=== PATIENT | female | born 1990 | race Caucasian/White ===

== ENCOUNTER 2020-09-27 13:35 | Inpatient (IN) ==
[2020-09-27] MEDS ORDERED: Naloxone 0.4 MG/ML INJ IVP PRN (14:07)
[2020-09-27] MEDS ORDERED: *HR* Nalbuphine 10 MG/ML AMPUL IV PRN (14:07)
[2020-09-27] MEDS ORDERED: Lidocaine 1% 20 ML MDV INFILT PRN (14:07)
[2020-09-27] MEDS ORDERED: Azithromycin 500 MG in 0.9 % Sodium Chloride 250 ML IVPB ONE (14:07)
[2020-09-27] MEDS ORDERED: Metoclopramide 10 MG/2 ML VIAL IVP PRN (14:07)
[2020-09-27] MEDS ORDERED: Famotidine 20 MG/2 ML VIAL IVP PRN (14:07)
[2020-09-27] MEDS ORDERED: Ondansetron 4 MG/2 ML VIAL IVP PRN (14:07)
[2020-09-27] MEDS ORDERED: Ringers Solution, Lactated 1,000 ML IVC SCH (14:15)
[2020-09-27 14:54] LABS: Basophils % 0.3 %; Eosinophils # 0.1 K/mcL (0.0-0.6); Eosinophils % 0.9 %; Hematocrit 35.7 % (35.3-44.9); Hemoglobin 11.9 g/dL (11.5-15.4); Immature Granulocytes % 0.3 % (0-4); Lymphocytes # 1.9 K/mcL (0.6-4.6); Lymphocytes % 21.4 %; Mean Corpuscular HGB Conc 33.3 g/dL (31.6-35.5); Mean Corpuscular Hemoglobin 30.1 pg (28.0-33.3); Mean Corpuscular Volume 90.4 fL (83.0-100.0); Mean Platelet Volume 10.4 fL (9.4-12.4); Monocytes # 0.6 K/mcL (0.0-1.3); Monocytes % 6.2 %; Neutrophils # 6.4 K/mcL (1.6-8.9); Platelet Count 254 K/mcL (140-400); Red Blood Count 3.95 M/mcL (3.82-4.97); Red Cell Distribution Width 13.8 % (11.5-14.5); Segmented Neutrophils % 70.9 %
[2020-09-27] MEDS ORDERED: *HR* FentaNYL (PF) 100 MCG/2 ML VIAL EP ONE (15:34)
[2020-09-27] MEDS ORDERED: Ropivacaine/PF 0.2% 20 ML VIAL EP ONE (15:34)
[2020-09-27] MEDS ORDERED: EPHEDrine 50 MG/ML VIAL IVP PRN (15:34)
[2020-09-27] MEDS ORDERED: Epidural Premix (fent/bupiv) 110 ML EP SCH (15:45)
[2020-09-27 15:54] LABS: Amphetamine Screen,Urine Negative ng/mL (Cutoff=1000); Barbiturate Screen,Urine Negative ng/mL (Cutoff=200); Benzodiazepines Screen,Urine Negative ng/mL (Cutoff=200); Cannabinoid Screen,Urine Negative ng/mL (Cutoff = 50); Cocaine Screen,Urine Negative ng/mL (Cutoff= 300); Opiate Screen,Urine Negative ng/mL (Cutoff=300); Phencyclidine Screen,Urine Negative ng/mL (Cutoff=25)
[2020-09-27] MEDS ORDERED: Oxytocin 20 units/ LR 1000 mL 20 UNIT/1,000 ML BAG IVC SCH ×2 (18:30→23:13)
[2020-09-27] MEDS ORDERED: Lanolin 7 G OINT...G. TP PRN (23:13)
[2020-09-27] MEDS ORDERED: Benzocaine/Menthol 56 GM AEROSOL SPRAY TP PRN (23:13)
[2020-09-27] MEDS ORDERED: Acetaminophen 325 MG TABLET PO PRN (23:13)
[2020-09-27] MEDS ORDERED: Rho Immune Globulin 1,500 UNIT SYRINGE IM PRN (23:13)
[2020-09-27] MEDS ORDERED: Measles/Mumps/Rubella Vacc 0.5 ML VIAL SQ PRN (23:13)
[2020-09-27] MEDS ORDERED: *HR* HYDROcodone/Acet 5/325 mg TABLET PO PRN (23:13)
[2020-09-28] MEDS: Ibuprofen 600 MG TABLET PO PRN ×3 (01:05→13:53)
[2020-09-28] MEDS ORDERED: Prenatal Vit/FA 1 EACH TABLET PO SCH (09:00)
[2020-09-28 15:33] VITALS: BP 128/82
== END 2020-09-28 21:39 | disposition home or self-care (01) | DRG 807 ==
LOC: 1NENULAB 13:35 → 1NENUOBS 23:56
PROVIDERS: ADMIT Obstetrics & Gynecology; ATTEND Obstetrics & Gynecology

== ENCOUNTER 2021-11-30 08:09 | Inpatient (IN) ==
[2021-11-30] MEDS ORDERED: EPHEDrine 50 MG/ML VIAL IVP PRN (08:31)
[2021-11-30] MEDS ORDERED: Famotidine 20 MG/2 ML VIAL IVP PRN (08:33)
[2021-11-30] MEDS ORDERED: Naloxone 0.4 MG/ML INJ IVP PRN (08:33)
[2021-11-30] MEDS ORDERED: Metoclopramide 10 MG/2 ML VIAL IVP PRN (08:33)
[2021-11-30] MEDS ORDERED: Ondansetron 4 MG/2 ML VIAL IVP PRN (08:39)
[2021-11-30] MEDS ORDERED: Lidocaine 1% 20 ML MDV INFILT PRN (08:39)
[2021-11-30] MEDS ORDERED: Epidural Premix (fent/bupiv) 110 ML EP SCH (08:45)
[2021-11-30] MEDS ORDERED: Ringers Solution, Lactated 1,000 ML IVC SCH (08:45)
[2021-11-30] MEDS ORDERED: Oxytocin 30 UNIT/503 ML BAG IVC SCH ×2 (09:00→15:09)
[2021-11-30] MEDS ORDERED: Oxytocin 30 UNIT/503 ML BAG IVC ONE (09:03)
[2021-11-30 09:12] LABS: Basophils % 0.4 %; Eosinophils # 0.2 K/mcL (0.0-0.6); Eosinophils % 1.9 %; Hematocrit 36.4 % (35.3-44.9); Hemoglobin 12.3 g/dL (11.5-15.4); Immature Granulocytes % 0.4 % (0-4); Lymphocytes % 23.8 %; Mean Corpuscular HGB Conc 33.8 g/dL (31.6-35.5); Mean Corpuscular Hemoglobin 31.1 pg (28.0-33.3); Mean Corpuscular Volume 92.2 fL (83.0-100.0); Mean Platelet Volume 10.7 fL (9.4-12.4); Monocytes # 0.5 K/mcL (0.0-1.3); Monocytes % 5.7 %; Neutrophils # 5.7 K/mcL (1.6-8.9); Platelet Count 221 K/mcL (140-400); Red Blood Count 3.95 M/mcL (3.82-4.97); Red Cell Distribution Width 13.8 % (11.5-14.5); Segmented Neutrophils % 67.8 %; White Blood Count 8.4 K/mcL (4.3-11.1)
[2021-11-30 10:54] LABS: Amphetamine Screen,Urine Negative ng/mL (Cutoff=1000); Barbiturate Screen,Urine Negative ng/mL (Cutoff=200); Benzodiazepines Screen,Urine Negative ng/mL (Cutoff=200); Cannabinoid Screen,Urine Negative ng/mL (Cutoff = 50); Cocaine Screen,Urine Negative ng/mL (Cutoff= 300); Opiate Screen,Urine Negative ng/mL (Cutoff=300); Phencyclidine Screen,Urine Negative ng/mL (Cutoff=25)
[2021-11-30] MEDS ORDERED: *HR* OxyCODONE Immed Rel 5 MG TABLET PO PRN (15:09)
[2021-11-30] MEDS ORDERED: Lanolin 7 G OINT...G. TP PRN (15:09)
[2021-11-30] MEDS ORDERED: Benzocaine/Menthol 56 GM AEROSOL SPRAY TP PRN (15:09)
[2021-11-30] MEDS ORDERED: Ondansetron ODT 4 MG TAB.RAPDIS SL PRN (15:09)
[2021-11-30] MEDS ORDERED: Ibuprofen 600 MG TABLET PO SCH (17:47)
[2021-11-30] MEDS: Acetaminophen 325 MG TABLET PO SCH (22:10)
[2021-12-01 05:12] VITALS: O2SAT 98
[2021-12-01 07:24] VITALS: BP 109/69; PULSE 84; TEMP 98
[2021-12-01] MEDS: Acetaminophen 325 MG TABLET PO SCH (07:54)
[2021-12-01] MEDS ORDERED: Prenatal Vit/FA 1 EACH TABLET PO SCH (09:00)
== END 2021-12-01 16:06 | disposition home or self-care (01) | DRG 806 ==
LOC: 1NENULAB 08:09 → 1NENUOBS 17:56
PROVIDERS: ADMIT Obstetrics & Gynecology; ATTEND Obstetrics & Gynecology